=== PATIENT | female | born 1945 | race Caucasian/White ===

== ENCOUNTER → 2017-09-09 | Outpatient (CLI) | payer MEDICARE ==
[2017-09-10 13:58] LABS: Stool Occult Bld Immuno 1 Negative (NEGATIVE)
== END ==
LOC: LAB SHORT 15:55
PROVIDERS: Nurse Practitioner Family
DX: Z13.9 Encounter for screening, unspecified (principal)
CPT/HCPCS: 82274

== ENCOUNTER → 2018-01-17 | Outpatient (CLI) | payer MEDICARE | END | disposition home or self-care (01) | LOC: LAB SHORT 16:20 → LAB EV 16:20 | DX: N76.0 Acute vaginitis (principal) | CPT/HCPCS: 87070; 87205 ==

== ENCOUNTER → 2019-03-17 | Outpatient (CLI) | payer MEDICARE ==
[2019-03-18 21:06] LABS: CHLAMYDIA TRACHOMATIS, NAA Negative (Negative); NEISSERIA GONORRHOEAE, NAA Negative (Negative)
== END | disposition home or self-care (01) ==
LOC: LAB SHORT 14:24 → LAB EV 14:24
PROVIDERS: Physician Assistant
DX: R10.9 Unspecified abdominal pain (principal)
CPT/HCPCS: 87070; 87205; 87491; 87591

== ENCOUNTER 2021-06-15 11:45 | Emergency (ER) | payer MEDICARE ==
[~2021-06-15] VITALS: Ht 165.1 cm; Wt 71.2 kg
[2021-06-15] MEDS ORDERED: IBUP600 PO (16:42)
== END 2021-06-15 17:01 | disposition home or self-care (01) ==
LOC: ER 11:45
DX: S52.571A Other intraarticular fracture of lower end of right radius, initial encounter for closed fracture (principal); I10 Essential (primary) hypertension; Z88.0 Allergy status to penicillin; Z88.2 Allergy status to sulfonamides; W19.XXXA Unspecified fall, initial encounter
CPT/HCPCS: 25605; 73100; 96374-59; 96375-59; 99283-25; J2270; J2405

== ENCOUNTER 2021-06-23 09:09 | Day surgery (SDC) | payer MEDICARE ==
[~2021-06-23] VITALS: Ht 165.1 cm; Wt 70.6 kg
[~2021-06-23 09:09] MED LIST: IBUP600 PO
[2021-06-23] MEDS ORDERED: LOSARTAN POTASS25 M2 PO (09:52)
--- NOTE | 2021-06-23 12:19 | NUR ---
06/23/21 1219 Tiera Rizo 0.15ML OF EPI 1MG/ML ADDED TO 30ML OF BUPIVICAINE .5% TO CREATE A SOLUTION OF BUPIVICAINE 0.5% WITH EPI 1:200,000.
--- NOTE | 2021-06-23 13:29 | NUR ---
06/23/21 2449 MELINDA YUEN DENIES PAIN AND NAUSEA
--- NOTE | 2021-06-23 14:35 | NUR ---
06/23/21 1435 MELINDA YUEN PT C/O NAUSEA. REGLAN 10MG GIVEN VIA IV
== END 2021-06-23 15:00 | disposition home or self-care (01) ==
LOC: ORSCSDS 09:09
PROVIDERS: Orthopaedic Surgery
PROC: 0PSH04Z Reposition Right Radius with Internal Fixation Device, Open Approach (ICD-10-PCS; principal; 2021-06-23 10:15)
DX: S52.571A Other intraarticular fracture of lower end of right radius, initial encounter for closed fracture (principal); I10 Essential (primary) hypertension; Z79.899 Other long term (current) drug therapy
CPT/HCPCS: C1713; J0171; J0690; J1100; J1885; J2250; J2405; J2704; J2765; J3010; J7120

== ENCOUNTER 2021-08-17 07:40 | Day surgery (SDC) | payer MEDICARE ==
[~2021-08-17] VITALS: Ht 162.6 cm; Wt 70.7 kg
[~2021-08-17 07:40] MED LIST changes: +Acetaminophen650 M1 PO; +LOSARTAN POTASS25 M2 PO
[2021-08-17] MEDS ORDERED: ESTRADIOL (08:12)
--- NOTE | 2021-08-17 10:27 | NUR ---
08/17/21 1027 MARCELL DAVIS PT URINATED SUCCESSFULLY PRIOR TO DC. END NOTE ORSC.RDS
== END 2021-08-17 10:18 | disposition home or self-care (01) ==
LOC: ORSCSDS 07:40 → ORSCMMR 08:45 → ORSCSDS 10:18 → ORSCMMR 11:30 → ORD 11:30
PROVIDERS: Orthopaedic Surgery
PROC: 0PPHX5Z Removal of External Fixation Device from Right Radius, External Approach (ICD-10-PCS; principal; 2021-08-17 08:45)
DX: S52.571D Other intraarticular fracture of lower end of right radius, subsequent encounter for closed fracture with routine healing (principal); I10 Essential (primary) hypertension; F41.8 Other specified anxiety disorders; Z79.899 Other long term (current) drug therapy
CPT/HCPCS: J0171; J0690; J2250; J2704; J3010; J7120

== ENCOUNTER 2024-09-07 13:34 | Emergency (ER) | payer OTHER, MEDICARE ==
[~2024-09-07] VITALS: Ht 162.6 cm; Wt 72.6 kg
[~2024-09-07 13:34] MED LIST changes: +ESTRADIOL
[2024-09-07] MEDS ORDERED: FentaNYL Citrate 50 MCG/ML 2 ML Injection IV ONE (17:00)
[2024-09-07] MEDS ORDERED: Ondansetron HCl 2 MG / ML 2ML Vial IV ONE (17:35)
[2024-09-07] MEDS ORDERED: Percocet 5-3251 EACH PO (17:51)
[2024-09-07] MEDS ORDERED: RX Prepack 2 Tabs Ondansetron ODT 4MG UD ONE (18:35)
[2024-09-07] MEDS ORDERED: RX Prepack 6 Tabs Oxycodone 5mg UD ONE (18:35)
[2024-09-07 18:43] VITALS: BP 158/72
[2024-09-10] MEDS ORDERED: OMEGA 3 (08:37)
== END 2024-09-07 18:55 | disposition home or self-care (01) ==
LOC: ER 13:34
DX: S52.592A Other fractures of lower end of left radius, initial encounter for closed fracture (principal); S52.602A Unspecified fracture of lower end of left ulna, initial encounter for closed fracture; I10 Essential (primary) hypertension; Z88.0 Allergy status to penicillin; Z88.2 Allergy status to sulfonamides; Z88.8 Allergy status to other drugs, medicaments and biological substances; Z91.040 Latex allergy status; W01.0XXA Fall on same level from slipping, tripping and stumbling without subsequent striking against object, initial encounter; Y92.481 Parking lot as the place of occurrence of the external cause
CPT/HCPCS: 25605; 73100; 73110; 96374-59; 99283-25; A9270; J2405; J3010

== ENCOUNTER 2024-09-10 11:00 | Day surgery (SDC) | payer MEDICARE ==
[2024-09-10] VITALS (12 sets, daily range): BP systolic 128–166; BP diastolic 76–126
[~2024-09-10] VITALS: Ht 160 cm; Wt 74.0 kg
[~2024-09-10 11:00] MED LIST changes: +CeFAZolin Sodium 2,000 MG in NS 100 ML IV SCH; +Dexamethasone Sod Phos 10 MG/ML 1ML VIAL ONE; +EpiNEPhrine 1 MG/1 ML 1ML Vial ONE; +Lactated Ringer's 1,000 ML IV SCH; +OMEGA 3; +Ondansetron HCl 2 MG / ML 2ML Vial ONE; +Percocet 5-3251 EACH PO
[2024-09-10] MEDS ORDERED: FentaNYL Citrate 50 MCG/ML 2 ML Injection ONE (11:02)
[2024-09-10] MEDS ORDERED: CeFAZolin Sodium 2,000 MG VIAL ONE (11:24)
[2024-09-10] MEDS ORDERED: OMEGA-3 + D SO1 EACH PO (11:44)
[2024-09-10] MEDS ORDERED: THERA-D2000 UNIT PO (11:45)
[2024-09-10] MEDS ORDERED: [UNRECOGNIZED DRUG - OTHER] PO (11:47)
[2024-09-10] MEDS ORDERED: Ropivacaine 0.5% HCL/PF 5 MG/ML 30ML Vial ONE (12:03)
[2024-09-10] MEDS ORDERED: propofoL 100 ML IV ONE (12:04)
--- NOTE | 2024-09-10 12:12 | NUR ---
History, Chart, Medications and Allergies reviewed before start of procedure. Patient up to Ambulate independently. Gait steady. Pre-Op teaching done. Pt verbalizes understanding. Patient confirms NPO status and agrees with scheduled surgery. Patient reports completing Chlorhexadine shower X2 prior to admission to hospital. Surgical site prepped with 2% Chlorhexidine cloth wipe. Patient States Post-Procedure ride home has been arranged.
--- NOTE | 2024-09-10 12:44 | NUR ---
AXILLARY BLOCK COMPLETED AT BEDSIDE WITH DR. CASANOVA. PULSE OX ON THROUGHOUT PROCEDURE, ROOM AIR. PT MEDICATED WITH 25MCG FENTANYL & 10MCG PRECEDEX ADMINISTERED BY ANESTHESIA PRIOR TO BLOCK. PT TOLERATED WELL, NO ISSUES OR COMPLICATIONS.
[2024-09-10] MEDS ORDERED: HYDROmorphone HCl/Pf 1MG SYR ONE (12:55)
[2024-09-10] MEDS ORDERED: Labetalol HCL 5 MG/ML 4ML Injection (Single Dose) ONE (13:15)
[2024-09-10] MEDS ORDERED: Ketorolac Tromethamine 30mg Vial ONE (13:40)
[2024-09-10] MEDS ORDERED: Ondansetron HCl 2 MG / ML 2ML Vial ONE (14:39)
[2024-09-10] MEDS ORDERED: OXYCODONE-ACET1 EAC3 (15:30)
[2024-09-10] MEDS ORDERED: OxyCODONE HCL 5 MG TAB PO PRN (15:50)
--- NOTE | 2024-09-10 16:44 | NUR ---
Discharge instructions reviewed with patient. Patient verbalizes understanding. Copy given to patient to take home. Dressing to procedure site clean, dry, intact with no visible drainage, swelling, erythema or bruising noted. Extra Aquacel dressing provided per MD orders, ice pack & sling applied. Discharged via wheelchair to private car for ride home.
--- NOTE | 2024-09-10 16:45 | NUR ---
PT ABLE TO AMBULATE TO RESTROOM WITH SBA MULTIPLE TIMES POST-OP; STEADY GAIT, LEFT ARM IN SLING.
== END 2024-09-10 23:00 | disposition home or self-care (01) ==
LOC: ORSCMMR 11:00 → ORD 11:00 → ORSCMMR 11:02 → ORD 23:00
PROVIDERS: Orthopaedic Surgery
PROC: 0PSJ04Z Reposition Left Radius with Internal Fixation Device, Open Approach (ICD-10-PCS; principal; 2024-09-10 13:00)
DX: S52.552A Other extraarticular fracture of lower end of left radius, initial encounter for closed fracture (principal); W18.30XA Fall on same level, unspecified, initial encounter; I10 Essential (primary) hypertension; S52.599A Other fractures of lower end of unspecified radius, initial encounter for closed fracture; Z79.899 Other long term (current) drug therapy; Z01.818 Encounter for other preprocedural examination
CPT/HCPCS: 36415; 73100; 80048; 85025; 93005; 93010; A9270; C1713; J0171; J0690; J1100; J1171; J1885; J2405; J2704; J2795; J3010; J7120

== ENCOUNTER 2024-09-26 13:59 | Emergency (ER) | payer MEDICARE ==
[~2024-09-26] VITALS: Ht 162.6 cm; Wt 70.3 kg
[~2024-09-26 13:59] MED LIST changes: -CeFAZolin Sodium 2,000 MG in NS 100 ML IV SCH; -Dexamethasone Sod Phos 10 MG/ML 1ML VIAL ONE; -EpiNEPhrine 1 MG/1 ML 1ML Vial ONE; -Lactated Ringer's 1,000 ML IV SCH; +OMEGA-3 + D SO1 EACH PO; +OXYCODONE-ACET1 EAC3; -Ondansetron HCl 2 MG / ML 2ML Vial ONE; +THERA-D2000 UNIT PO; +[UNRECOGNIZED DRUG - OTHER] PO
[2024-09-26 14:15] VITALS: BP 152/100
[2024-09-26 14:56] LABS: BASOPHILS ABSOLUTE AUTO 0.01 K/mm3 (0.00-0.23); BASOPHILS PERCENT AUTO 0 % (0-2); EOSINOPHILS ABSOLUTE AUTO 0.02 K/mm3 (0.00-0.68); EOSINOPHILS PERCENT AUTO 0 % (0-6); Hematocrit 36.9 % (33.0-51.0); IMMATURE GRAN ABSOLUTE AUTO 0.01 K/mm3 (0.00-0.10); IMMATURE GRAN PERCENT AUTO 0 % (0-1); LYMPHOCYTES ABSOLUTE AUTO 1.24 K/mm3 (0.84-5.20); LYMPHOCYTES PERCENT AUTO 18 % (21-46); MONOCYTES ABSOLUTE AUTO 0.93 K/mm3 (0.16-1.47); MONOCYTES PERCENT AUTO 14 % (4-13); Mean Corpuscular HGB 30.7 pg (26.0-34.0); Mean Corpuscular HGB Conc 35.2 g/dL (31.5-36.5); Mean Corpuscular Volume 87 fL (80-100); Mean Platelet Volume 10.3 fL (9.1-12.4); NEUTROPHILS ABSOLUTE AUTO 4.52 K/mm3 (1.96-9.15); NEUTROPHILS PERCENT AUTO 67 % (41-73); Platelet Count 293 K/mm3 (150-400); RDW Coefficient Variation 13.1 % (11.7-14.2); RDW Standard Deviation 41.1 fL (35.1-46.3); Red Blood Cell Count 4.23 M/mm3 (3.80-5.20); White Blood Cell Count 6.73 K/mm3 (4.00-11.30)
[2024-09-26 15:18] LABS: Albumin, Blood 3.9 g/dL (3.4-5.0); Albumin/Globulin Ratio 1.1 (0.8-1.8); Bilirubin, Total 0.7 mg/dL (0.1-1.0); Bun/Creatinine Ratio 12.4 (12.0-20.0); Calcium, Blood 9.3 mg/dL (8.5-10.1); Creatinine, Blood 0.73 mg/dL (0.40-1.00); Globulin, Blood 3.4 g/dL (2.2-4.0); Potassium, Blood 3.6 mmol/L (3.5-5.5); Total Protein, Blood 7.3 g/dL (6.4-8.2)
[2024-09-26 16:31] LABS: Source, Urine Clean Catch
[2024-09-26 16:35] LABS: Appearance, Urine Hazy (Clear); Bilirubin, Urine Neg (Neg); Blood, Urine 1+ (Neg); Color, Urine Yellow (P-Yellow); Glucose Qualitative, Urine Neg (Neg); Ketones, Urine 2+ (Neg); Leukocyte Esterase, Urine 1+ (Neg); Nitrite, Urine Neg (Neg); Protein, Urine 1+ (Neg); Specific Gravity, Urine 1.015 (1.003-1.022); Urobilinogen, Urine NORM (Normal)
[2024-09-26] MEDS ORDERED: NS 1,000 ML IV SCH (17:00)
[2024-09-26] MEDS ORDERED: Ketorolac Tromethamine 15mg Vial IV ONE (17:00)
[2024-09-26] MEDS ORDERED: Acetaminophen 500 MG Tab PO ONE (17:00)
[2024-09-26 17:08] LABS: Amorphous Mod (0-Heavy); Bacteria Many /hpf; Mucus Light (0-Heavy); Squamous Epithelial Cells Many /hpf (Few)
[2024-09-26 17:09] LABS: Transitional Epithelial Cells Rare /hpf (0-Rare)
[2024-09-26] MEDS ORDERED: GABA300 PO (21:03)
[2024-09-26] MEDS ORDERED: Dexamethasone Sod Phos 10 MG/ML 1ML VIAL IV ONE (21:05)
[2024-09-26] MEDS ORDERED: FentaNYL Citrate 50 MCG/ML 2 ML Injection IV ONE (21:05)
== END 2024-09-26 21:10 | disposition home or self-care (01) ==
LOC: ER 13:59
PROVIDERS: Emergency Medicine
DX: S22.089A Unspecified fracture of T11-T12 vertebra, initial encounter for closed fracture (principal); S32.029A Unspecified fracture of second lumbar vertebra, initial encounter for closed fracture; M46.1 Sacroiliitis, not elsewhere classified; I10 Essential (primary) hypertension; Z88.0 Allergy status to penicillin; Z88.2 Allergy status to sulfonamides; Z91.040 Latex allergy status; Z79.899 Other long term (current) drug therapy; Z79.83 Long term (current) use of bisphosphonates; Z79.891 Long term (current) use of opiate analgesic; W18.30XA Fall on same level, unspecified, initial encounter
CPT/HCPCS: 74177; 80053; 81001; 85025; 87086; 93005; 93010; 96361; 96374-59; 96375; 99284-25; A9270; J1100; J1885; J3010; J7030; Q9967